=== PATIENT | male | born 1965 | race African-American/Black ===

== ENCOUNTER 2025-05-20 18:36 | Emergency (ER) | payer OTHER ==
[~2025-05-20] VITALS: Ht 172.7 cm; Wt 74.8 kg
[2025-05-20 18:44] VITALS: TEMP 98.1
[2025-05-20] MEDS ORDERED: ACETAMINOPHEN 325 MG TABLET ONE (21:04)
[2025-05-20] MEDS: ACETAMINOPHEN 325 MG TABLET PO ONE (21:56)
[2025-05-20 22:02] VITALS: BP 131/74; O2SAT 97
== END 2025-05-20 22:03 | disposition home or self-care (01) ==
LOC: ER 20:50
DX: R07.89 Other chest pain (principal); M79.632 Pain in left forearm; M25.552 Pain in left hip; M16.0 Bilateral primary osteoarthritis of hip; V89.2XXA Person injured in unspecified motor-vehicle accident, traffic, initial encounter; Y93.89 Activity, other specified; Y92.410 Unspecified street and highway as the place of occurrence of the external cause; Y99.9 Unspecified external cause status
CPT/HCPCS: 71100-TC; 73060-TC; 73090-TC; 73502